=== PATIENT | female | born 1990 | race Caucasian/White ===

== ENCOUNTER 2016-10-14 07:20 | Emergency (ER) | payer BC, OTHER ==
[~2016-10-14] VITALS: Ht 167.6 cm; Wt 59.0 kg
[2016-10-14] MEDS ORDERED: MELA3TAB PO (07:34)
[2016-10-14] MEDS ORDERED: ESCI5TAB PO (07:34)
[2016-10-14] MEDS ORDERED: MAGN400C PO (07:34)
[2016-10-14] MEDS ORDERED: ZINC220C8 PO (07:34)
--- NOTE | 2016-10-14 08:06 | NUR ---
Dr Edwards at the bedside for eval and exam.
[2016-10-14] MEDS ORDERED: predniSONE 20 MG TABLET PO ONE (08:30)
[2016-10-14] MEDS ORDERED: predniSONE 10 MG TABLET ONE (08:38)
[2016-10-14] MEDS ORDERED: predniSONE 50 MG TABLET ONE (08:38)
--- NOTE | 2016-10-14 08:46 | NUR ---
Patient discharged to home in stable conditon. Written and verbal after care instructions given. Patient verbalizes understanding of instructions.
[2016-10-14 08:47] VITALS: BP 111/80
== END 2016-10-14 08:47 | disposition home or self-care (01) ==
LOC: ER 07:20
DX: B02.9 Zoster without complications (principal); F41.9 Anxiety disorder, unspecified; F10.10 Alcohol abuse, uncomplicated; F17.200 Nicotine dependence, unspecified, uncomplicated; F19.10 Other psychoactive substance abuse, uncomplicated; F12.10 Cannabis abuse, uncomplicated; Z88.0 Allergy status to penicillin; Z79.899 Other long term (current) drug therapy
CPT/HCPCS: 99283; A4663; J7512 ×2

== ENCOUNTER 2017-03-08 18:07 | Emergency (ER) | payer BC ==
[~2017-03-08] VITALS: Ht 167.6 cm; Wt 61.7 kg
[~2017-03-08 18:07] MED LIST: ESCI5TAB PO; MAGN400C PO; MELA3TAB PO; ZINC220C8 PO
--- NOTE | 2017-03-08 18:46 | NUR ---
PATIENT WAS SEEN BY DR STEIN. DC AND FOLLOW UP INSTRUCTIONS GIVEN AND EXPLAINED TO PATIENT WHO STATES SHE UNDERSTANDS ALL INSTRUCTIONS.
== END 2017-03-08 18:47 | disposition home or self-care (01) ==
LOC: ER 18:08
DX: H10.212 Acute toxic conjunctivitis, left eye (principal); T50.995A Adverse effect of other drugs, medicaments and biological substances, initial encounter; Z88.0 Allergy status to penicillin; F17.200 Nicotine dependence, unspecified, uncomplicated; Y92.89 Other specified places as the place of occurrence of the external cause
CPT/HCPCS: A4663

== ENCOUNTER 2022-02-27 23:34 | Emergency (ER) | payer BC ==
[~2022-02-27] VITALS: Ht 165.1 cm; Wt 88.5 kg
[~2022-02-27 23:34] MED LIST changes: -MELA3TAB PO; +MELA3TAB41 PO; +ZINC1CAP2 PO; -ZINC220C8 PO
[2022-02-28] MEDS ORDERED: IV NORMAL SALINE 1000 ML BAG IV ONE (00:15)
[2022-02-28] MEDS ORDERED: ONDANSETRON 4 MG/2 ML VIAL IV ONE ×2 (00:15→01:45)
[2022-02-28] MEDS ORDERED: ONDANSETRON 4 MG/2 ML VIAL ONE ×2 (00:17→01:37)
[2022-02-28 00:23] LABS: HEMATOCRIT 34.2 % (31.2-41.9); MEAN CORPUSCULAR HEMOGLOBIN 26.6 uug (24.7-32.8); MEAN CORPUSCULAR VOLUME 80.9 fL (75.5-95.3); PLATELET COUNT (AUTO) 329 K/uL (179-408)
[2022-02-28 00:26] LABS: CREATININE 0.7 mg/dL (0.6-1.3); POTASSIUM 3.4 mmol/L (3.5-5.1)
[2022-02-28 00:32] LABS: BILIRUBIN,DIRECT 0.1 mg/dL (0.0-0.2); TOTAL PROTEIN, SERUM 7.9 g/dL (6.4-8.2)
[2022-02-28] MEDS ORDERED: ONDA4TAB5 PO (01:41)
--- NOTE | 2022-02-28 02:10 | NUR ---
Patient discharged to home in stable condition. Written and verbal after care instructions given. Patient verbalizes understanding of instructions. Stressed follow up or return to ER for worsening s/s. Patient walked out with steady gait.
[2022-02-28 02:29] VITALS: BP 130/60
== END 2022-02-28 02:15 | disposition home or self-care (01) ==
LOC: ER 23:37
DX: R11.2 Nausea with vomiting, unspecified (principal); Z88.0 Allergy status to penicillin; F41.9 Anxiety disorder, unspecified; Z79.899 Other long term (current) drug therapy
CPT/HCPCS: 80076; 80048; 83690; 85025; 84702; 36415; 93005; 99284; 96361; 96374; 96376; J2405 ×2; J7040; A4663

== ENCOUNTER 2022-03-04 09:41 | Emergency (ER) | payer BC ==
[~2022-03-04] VITALS: Ht 167.6 cm; Wt 79.4 kg
[~2022-03-04 09:41] MED LIST changes: +ONDA4TAB5 PO
[2022-03-04] MEDS ORDERED: LAMO200T2 PO (09:46)
[2022-03-04] MEDS ORDERED: PANT40TA49 PO (09:46)
--- NOTE | 2022-03-04 09:47 | NUR ---
[email or web address], medical screening exam in progress
[2022-03-04 10:03] LABS: *BILIRUBIN,URIN 1+ (NEGATIVE); *BLOOD, URINE 1+ (NEGATIVE); *CLARITY,URINE CLEAR (CLEAR); *COLOR,URINE YELLOW (YELLOW); *KETONES,URINE 2+ (NEGATIVE); *UROBILINOGEN,URINE 0.2 E.U./dl (NORMAL); LEUKOCYTE ESTERASE ,URINE NEGATIVE (NEGATIVE); NITRITE, URINE NEGATIVE (NEGATIVE); PH,URINE 5.5 (5.0-8.0); UGLUCOSE NEGATIVE (NEGATIVE)
[2022-03-04 10:06] LABS: *URINE HCG, QUAL NEG (NEGATIVE)
[2022-03-04 10:07] LABS: HEMATOCRIT 34.2 % (31.2-41.9); MEAN CORPUSCULAR HEMOGLOBIN 26.2 uug (24.7-32.8); PLATELET COUNT (AUTO) 362 K/uL (179-408)
[2022-03-04 10:29] LABS: BILIRUBIN,DIRECT 0.2 mg/dL (0.0-0.2); CREATININE 0.8 mg/dL (0.6-1.3); POTASSIUM 3.3 mmol/L (3.5-5.1); TOTAL PROTEIN, SERUM 7.6 g/dL (6.4-8.2)
[2022-03-04] MEDS ORDERED: PHEN16.234 PO (11:07)
[2022-03-04 11:12] LABS: BACTERIA,URINE FEW /HPF (NONE SEEN); SQUAMOUS EPITHELIAL CELL,UR MODERATE /HPF (NONE SEEN); URINE AMORPHOUS URATE MANY /HPF
--- NOTE | 2022-03-04 11:12 | NUR ---
Patient discharged to home in stable condition with brisk steady gait. Written and verbal after care instructions given. Patient verbalized understanding and compliance of instructions. 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
== END 2022-03-04 11:12 | disposition home or self-care (01) ==
LOC: ER 09:41
DX: R11.2 Nausea with vomiting, unspecified (principal); K58.9 Irritable bowel syndrome, unspecified; F17.200 Nicotine dependence, unspecified, uncomplicated; F41.9 Anxiety disorder, unspecified; Z79.899 Other long term (current) drug therapy; Z86.010 Personal history of colon polyps; N83.202 Unspecified ovarian cyst, left side; Z88.0 Allergy status to penicillin
CPT/HCPCS: 36415; 83690; 84703; 85025; A4663